=== PATIENT | female | born 1995 | race Caucasian/White ===

== ENCOUNTER 2022-05-25 18:45 | Emergency (ER) | payer OTHER, SELFPAY ==
[2022-05-25 18:47] VITALS: BP 138/86; PULSE 119; RESP 20; TEMP 37; O2SAT 100
[2022-05-25 18:50] LABS: Glucose Point of Care 349 mg/dl (65-105)
--- NOTE | 2022-05-25 19:12 | ED.GENADULT ---
HPI - General Adult General Chief complaint: Recheck/Abnormal Lab/Rx Stated complaint: Blood Sugar Above 400 Time Seen by Provider: 05/25/22 18:55 History of Present Illness HPI narrative: 27-year-old female type I diabetic presenting the emergency department for evaluation of elevated blood sugars. Patient reports that her blood sugars typically run around 250. Patient states over the last few days they have been running much higher. Patient states that she does use the insulin pens and does not have a Dexcom or insulin pump. Patient reports her last episode of DKA was approximately 4.5 years ago. Patient states she has had some nausea but denies any chest pain or shortness of breath. Patient denies any recent illnesses. Patient denies abdominal pain or diarrhea. Related Data Allergies Allergy/AdvReac Type Severity Reaction Status Date / Time No Known Allergies Allergy Verified 05/25/22 19:33 Review of Systems Review of Systems: CONSTITUTIONAL: Feeling fatigued for the past few days EYES: Denies visual changes, redness, or discharge. ENT: Denies rhinorrhea, congestion, sore throat, or otalgia. CARDIOVASCULAR: Denies chest pain, palpitations, or edema. RESPIRATORY: Denies cough or dyspnea. GASTROINTESTINAL: See HPI GENITOURINARY: Denies dysuria or hematuria. SKIN: Denies rash or itching. MUSCULOSKELETAL: Denies back pain, joint pain, or myalgia. NEUROLOGIC: Denies headache, numbness, or weakness. Exam Narrative: APPEARANCE: Well appearing, no pain, no distress, well-nourished. HEAD: normocephalic, atraumatic. EYES: PERRLA/EOMI, conjunctivae clear. NOSE: Normal no drainage NECK: Supple. No adenopathy, no masses. RESPIRATORY: Airway patent, respirations nonlabored. Clear to auscultation bilaterally, no rales, rhonchi, wheezing. CARDIOVASCULAR: Regular rate and rhythm without murmurs rubs or gallops. ABDOMINAL: Soft, nontender, nondistended, normal bowel sounds MUSCULOSKELETAL: Moves all extremities. Strength/ROM intact, No edema, No calf tenderness. NEURO: Alert. Cranial nerves II through XII intact. Grossly intact SKIN: Warm, dry. Normal Color Course Course Emergency Course: Patient reports he does feel improved with rehydration. Patient's blood sugar was back to her normal baseline. Patient was afebrile but does have a minor leukocytosis of 11.1. Patient does not have an anion gap and patient's beta hydroxybutyrate is not elevated. Urine shows no evidence of urinary tract infection and does not have ketones. Patient was updated results of her work-up and was comfortable with plan for discharge and follow-up. Vital Signs Vital signs: Vital Signs Temperature 98.6 F 05/25/22 18:47 Pulse Rate 119 H 05/25/22 18:47 Respiratory Rate 20 05/25/22 18:47 Blood Pressure 138/86 05/25/22 18:47 Pulse Oximetry 100 05/25/22 18:47 Oxygen Delivery Room Air 05/25/22 18:47 Temperature 98.3 F 05/25/22 21:00 Pulse Rate 90 05/25/22 21:32 Respiratory Rate 18 05/25/22 21:32 Blood Pressure 110/78 05/25/22 21:32 Pulse Oximetry 100 05/25/22 21:32 Oxygen Delivery Room Air 05/25/22 18:47 Medical Decision Making Vital Signs Vital Signs: Vital Signs Temperature 98.6 F 05/25/22 18:47 Pulse Rate 119 H 05/25/22 18:47 Respiratory Rate 20 05/25/22 18:47 Blood Pressure 138/86 05/25/22 18:47 Pulse Oximetry 100 05/25/22 18:47 Oxygen Delivery Room Air 05/25/22 18:47 Temperature 98.3 F 05/25/22 21:00 Pulse Rate 90 05/25/22 21:32 Respiratory Rate 18 05/25/22 21:32 Blood Pressure 110/78 05/25/22 21:32 Pulse Oximetry 100 05/25/22 21:32 Oxygen Delivery Room Air 05/25/22 18:47 Lab Data Lab results reviewed: Yes I reviewed the patient's lab results. Result diagrams: 05/25/22 19:28 05/25/22 19:28 Labs: Lab Results 05/25/22 05/25/22 05/25/22 Range/Units 18:47 19:28 19:28 WBC 11.8 H (4.5-10.0) K/mm3 RBC 4.59
[2022-05-25 19:30] VITALS: BP 162/87; PULSE 89; RESP 16; TEMP 36.8; O2SAT 98
[2022-05-25] MEDS: SODIUM CHLORIDE 0.9% IV 1,000 ML 999 ML IV CONT ×2 (19:33→19:57)
[2022-05-25 19:41] LABS: Basophils Absolute Auto 0.1 K/mm3 (0.0-0.1); Basophils Percent Auto 0.4 % (0.2-1.2); Eosinophils Absolute Auto 0.1 K/mm3 (0-0.3); Eosinophils Percent Auto 0.9 % (0-4.4); Hematocrit 38.6 % (37.0-47.0); Hemoglobin 13.7 g/dL (12.0-15.0); Immature Granulocyte Absolute 0.06 K/mm3 (0.00-0.031); Immature Granulocyte Percent A 0.5 % (0-0.5); Lymphocytes Absolute Auto 2.34 K/mm3 (0.9-3.2); Lymphocytes Percent Auto 19.8 % (18.3-44.2); Mean Corpuscular HGB Conc 35.5 g/dl (32-36); Mean Corpuscular Hemoglobin 29.8 pg (26-34); Mean Corpuscular Volume 84.1 fl (80-100); Mean Platelet Volume 9.9 fl (7.4-10.4); Monocytes Absolute Auto 0.7 K/mm3 (0.1-0.6); Monocytes Percent Auto 6.1 % (2.6-8.5); Neutrophils Absolute Auto 8.6 K/mm3 (1.3-6.7); Neutrophils Percent Auto 72.3 % (45.5-73.1); Platelet Count Result 290 k/mm3 (150-375); Red Blood Count 4.59 M/mm3 (4.2-5.4); Red Cell Distribution Width 11.9 % (11.5-14.5); White Blood Count 11.8 K/mm3 (4.5-10.0)
[2022-05-25 19:42] LABS: Appearance Urine Clear (Clear); Bilirubin Urine Negative (Negative); Blood Urine Trace-intact (Negative); Color Urine Yellow (Yellow); Glucose Urine UA 2+ mg/dL (Negative); Ketones Urine Negative (Negative); Leukocyte Esterase Ur Trace LEU/UL (Negative); Nitrate Urine Negative (Negative); Protein Urine Negative (Negative); Urobilinogen Urine 0.2 mg/dL (<2.0)
[2022-05-25 19:53] LABS: Bacteria Urine Trace /hpf; Mucus Urine Rare /lpf; Squamous Epithelial Cell Urine Many /hpf (Few)
[2022-05-25 19:54] LABS: Add Urine Microscopic? NO; Beta-Hydroxybutyrate/Acetoacetate 0.11 mmol/L (0.02-0.27)
[2022-05-25 19:59] LABS: Alanine Aminotransferase 18 U/L (6-35); Albumin Level 3.9 g/dL (3.5-5.1); Alkaline Phosphatase 107 U/L (38-126); Anion Gap 13 mmol/L (8-16); Aspartate Amino Transferase 22 U/L (14-36); Bilirubin,Total 0.3 mg/dL (0.2-1.3); Blood Urea Nitrogen 18 mg/dL (7-17); Calcium 8.7 mg/dL (8.4-10.2); Carbon Dioxide 23 mmol/L (22-30); Chloride 101 mmol/L (98-107); Estimated CRCL calculation 194 ml/min; Estimated Glomerular Filt Rate > 60; Glucose 311 mg/dL (65-110); Magnesium 1.6 mg/dL (1.6-2.3); Phosphorus 2.6 mg/dL (2.5-4.5); Potassium 3.8 mmol/L (3.4-5.0); Sodium 137 mmol/L (137-145)
[2022-05-25 20:30] VITALS: BP 122/78; PULSE 86; RESP 16; O2SAT 100
[2022-05-25 21:00] VITALS: BP 119/70; PULSE 87; RESP 16; TEMP 36.8; O2SAT 100
[2022-05-25 21:12] LABS: Glucose Point of Care 221 mg/dl (65-105)
--- NOTE | 2022-05-25 21:22 | PC.NURSE ---
Talked to Cl in lab at 21:21 to add on UC
[2022-05-25 21:32] VITALS: BP 110/78; PULSE 90; RESP 18; O2SAT 100
== END 2022-05-25 21:32 | disposition home or self-care (01) ==
PROVIDERS: Emergency Provider Emergency Medicine
DX: E10.65 Type 1 diabetes mellitus with hyperglycemia (principal)
CPT/HCPCS: 36415; 80053; 81003; 81025; 82010; 82948; 83735; 84100; 85025; 87077; 87086; 87088; 96360; 96361; 99283; J7030

== ENCOUNTER 2022-06-28 14:08 | Emergency (ER) | payer OTHER, SELFPAY ==
[2022-06-28 14:12] VITALS: BP 123/71; PULSE 93; RESP 16; TEMP 36.6; O2SAT 99
--- NOTE | 2022-06-28 17:20 | ED.URI ---
HPI - URI/Sore Throat General Chief Complaint: Upper Respiratory Infection Stated Complaint: sore throat Time Seen by Provider: 06/28/22 17:20 Source: patient, RN notes reviewed and old records reviewed Mode of arrival: ambulatory Limitations: no limitations History of Present Illness HPI Narrative: 27 year old female who presents to [facility] care with complaints of sore throat for 2 days with some nasal drainage, no fever no body aches has had a history of strep throat in the past. Patient reports that she has had known exposure to strep throat. Patient rates her throat pain 8/10 reports throat white with increased discomfort with swallowing. Patient is Type I insulin dependent diabetic. MD elicited complaint: sore throat and nasal congestion Pertinent past history: other (strep) Onset (ago): day(s) (2) Pain scale (0-10): 8 Able to tolerate fluids by mouth: Yes Exacerbating factors: swallowing Related Data Home Medications Medication Instructions Recorded Confirmed bupropion HCl 150 mg 24 hr tablet, mg PO 06/28/22 extended release fluconazole 100 mg tablet mg 06/28/22 insulin glargine 100 unit/mL (3 unit subcut 06/28/22 mL) subcutaneous pen (Lantus Solostar U-100 Insulin) insulin lispro 100 unit/mL subcut 06/28/22 subcutaneous pen Allergies Allergy/AdvReac Type Severity Reaction Status Date / Time No Known Allergies Allergy Verified 06/28/22 15:53 Review of Systems Review of Systems: CONSTITUTIONAL: Denies malaise, chills, sweats, or fever. EYES: Denies visual changes, redness, or discharge. ENT: Reports rhinorrhea, congestion, sinus pain,no otalgia positive for sore throat. CARDIOVASCULAR: Denies chest pain, palpitations, or edema. RESPIRATORY:Denies cough.? Denies dyspnea. GASTROINTESTINAL: Denies abdominal pain, nausea, vomiting, diarrhea SKIN: Denies rash or itching. MUSCULOSKELETAL: Denies myalgia. NEUROLOGIC: Denies headache. All systems reviewed & are unremarkable except as noted in HPI and below PMFSH Past Medical History Medical History (Updated 07/03/22 @ 20:50 by Luh Bernal NP) Anxiety and depression Type I diabetes mellitus Social History Social History (Updated 07/03/22 @ 20:52 by Luh Bernal NP) Smoking status: Never smoker Alcohol intake: unknown Substance use type: does not use Gender identity (if verbalized by the patient): Female Comments At time of signature, agree with nursing past medical, surgical, social and family history. There is no relevant family history pertinent to the presenting complaint Exam Narrative: GENERAL: Well-appearing, well-nourished, and in no acute distress. HEAD: Normocephalic EYES: PERRLA, conjunctivae clear ENT: Nares clear, turbinates edematous and erythematous, clear discharge. Mucous membranes moist. TM pearly kent with dull light reflex bilaterally; no tragal tenderness. Oropharynx erythematous without lesions. Tonsils red and enlarged and without exudate, no drooling, no hoarseness, no trismus, uvula midline. NECK: Supple. lymphadenopathy CHEST: Clear to auscultation, breath sounds equal. No wheezing, rhonchi, rales, or stridor. No respiratory distress, speaks in full sentences.no cough noted, SAO2 99% on room air HEART: Regular rate and rhythm. No murmur heard. SKIN: Warm, dry, no rash. NEURO: Alert and oriented x3. PSYCH: Normal mood and affect Course Course Emergency Course: Patient is aware of diagnosis, understands and agrees to treatment plan.? Anticipatory guidance given.? Patient agrees to follow-up as directed and is aware of reasons to seek care at the emergency department. Portions of this record may have been created with voice recognition software Level of Care: Express Care Visit Vital Signs Vital signs: Vital Signs Temperature 36.6 C 06/28/22 14:12 Pulse Rate 93 06/28/22 14:12 Respiratory Rate 16 06/28/22 14:12 Blood Pressure 123/71 06/28/22
== END 2022-06-28 17:30 | disposition home or self-care (01) ==
PROVIDERS: Emergency Provider Registered Nurse; PCP Physician Assistant
DX: J02.0 Streptococcal pharyngitis (principal); F41.9 Anxiety disorder, unspecified; F32.A Depression, unspecified; E10.9 Type 1 diabetes mellitus without complications
CPT/HCPCS: 99213; G0463

== ENCOUNTER 2022-07-29 18:04 | Emergency (ER) | payer OTHER, SELFPAY ==
[2022-07-29 18:20] VITALS: BP 126/62; PULSE 98; RESP 16; TEMP 36.7; O2SAT 99
[2022-07-29 18:35] LABS: Glucose Point of Care > 500 mg/dl (65-105)
--- NOTE | 2022-07-29 18:37 | ED.GENADULT ---
HPI - General Adult General Chief complaint: Upper Respiratory Infection Stated complaint: weak,sinus loly, unable to eat, needs work note Source: patient Mode of arrival: ambulatory Limitations: no limitations History of Present Illness HPI narrative: Patient presents for evaluation of sick symptoms since yesterday. Symptoms include sinus congestion fatigue, body aches, decreased energy, nausea and one episode of vomiting. No fever, chills, shortness of breath, chest pain or cough. She is not taking any medication for her symptoms. She quit smoking three months ago. She states she works at a [employer] and gets sick frequently. She is diabetic and states her home blood sugars are poorly controlled. States her range is anywhere from 200-500. She states she is compliant with 38 units of Lantus nightly and sliding scale Levemir. No additional complaints or concerns. Related Data Home Medications Medication Instructions Recorded Confirmed insulin glargine 100 unit/mL (3 36 unit subcut DAILY 06/28/22 07/29/22 mL) subcutaneous pen (Lantus Solostar U-100 Insulin) insulin lispro 100 unit/mL See Rx Instructions .Route .COMPLEX 06/28/22 07/29/22 subcutaneous pen bupropion HCl 150 mg 24 hr tablet, 150 mg PO DAILY 07/29/22 07/29/22 extended release citalopram 10 mg tablet 10 mg PO DAILY 07/29/22 07/29/22 Allergies Allergy/AdvReac Type Severity Reaction Status Date / Time No Known Allergies Allergy Verified 07/29/22 18:10 Review of Systems Review of Systems: CONSTITUTIONAL: Reports fatigue. Denies fever, chills, or sweats. EYES: Denies visual changes, redness, or discharge. ENT: Reports sinus congestion. Denies sore throat or otalgia. CARDIOVASCULAR: Denies chest pain, palpitations, or edema. RESPIRATORY: Denies cough or dyspnea. GASTROINTESTINAL: Reports nausea and vomiting. Denies abdominal pain. GENITOURINARY: Denies dysuria or hematuria. SKIN: Denies rash or itching. MUSCULOSKELETAL: Reports generalized body aches. NEUROLOGIC: Reports generalized weakness. Denies headache, numbness, or dizziness. PSYCHIATRIC: Denies anxiety or depression. [facility] Past Medical History Medical History (Updated 07/29/22 @ 18:57 by Zander Stratton, [employer], ) Anxiety and depression Type I diabetes mellitus Surgical History Surgical History History of salpingectomy Family History Family History (Updated 07/29/22 @ 18:41 by Zander Stratton, TAYA, ) Mother Family history non-contributory Social History Social History Smoking status: Former smoker Tobacco type: cigarettes Alcohol intake: unknown Substance use type: does not use Gender identity (if verbalized by the patient): Female Spiritual care concerns: No Course Course Emergency Course: This is a 27-year-old female who presented for evaluation of multiple symptoms. Her COVID, influenza and strep test were all negative here. Her blood sugar was 568. I advised that she be transferred to the emergency department for further evaluation treatment, to which she was agreeable. She requested to be transferred to [facility]. I spoke with charge nurse there, Lesli, as she indicated that Dr Ramírez would agree to accept pt to Dept there. Pt transferred per private vehicle. Level of Care: Express Care Visit Vital Signs Vital signs: Vital Signs Temperature 36.7 C 07/29/22 18:20 Pulse Rate 98 07/29/22 18:20 Respiratory Rate 16 07/29/22 18:20 Blood Pressure 126/62 07/29/22 18:20 Pulse Oximetry 99 07/29/22 18:20 Oxygen Delivery Room Air 07/29/22 18:20 Temperature 36.7 C 07/29/22 18:20 Pulse Rate 98 07/29/22 18:20 Respiratory Rate 16 07/29/22 18:20 Blood Pressure 126/62 07/29/22 18:20 Pulse Oximetry 99 07/29/22 18:20 Oxygen Delivery Room Air 07/29/22 18:20 Medical Dec
== END 2022-07-29 18:50 | disposition short-term general hospital (02) ==
PROVIDERS: Emergency Provider Nurse Practitioner; PCP Physician Assistant
DX: E10.9 Type 1 diabetes mellitus without complications (principal); Z20.822 Contact with and (suspected) exposure to COVID-19; F41.9 Anxiety disorder, unspecified; F32.A Depression, unspecified; Z87.891 Personal history of nicotine dependence
CPT/HCPCS: 82948; 87081; 87426; 87804; 87880; 99213; C9803; G0463